=== PATIENT | male | born 1950 | race African-American/Black ===

== ENCOUNTER → 2016-03-27 | Outpatient (CLI) | payer MEDICARE ==
[2015-11-17 12:15] VITALS: BP 98/53
[~2016-03-27] MED LIST: ACET325T9 PO; BREO ELLIPTA 11 EACH IH; INHALER; RANI150T6 PO
--- NOTE | 2016-03-27 11:19 | EKG ---
[facility] [address] [place] [address] Test Date: 2016-03-27 Test Time: 11:19:06 Pat Name: CAROLINA PAGAN Department: Room: Gender: M Field Administrator: POLLO : 1950 Requested By: DONTAE COOK Order Number: [id number] Reading MD: Measurements Intervals [place]olson Rate: 102 P: 43 ND: 140 QRS: 64 QRSD: 82 T: 66 QT: 336 QTc: 442 Interpretive Statements SINUS TACHYCARDIA NO SPECIFIC ECG ABNORMALITIES RI6.01 No previous ECG available for comparison
== END | disposition home or self-care (01) ==
LOC: EKG 10:54
PROVIDERS: ATTEND Internal Medicine Hematology & Oncology
DX: C34.91 Malignant neoplasm of unspecified part of right bronchus or lung (principal); R53.83 Other fatigue
CPT/HCPCS: 93005

== ENCOUNTER → 2018-02-13 | Outpatient (CLI) | payer MEDICARE ==
[2015-11-17 12:15] VITALS: BP 98/53
[~2018-02-13] MED LIST changes: +CYAN10005 PO; +HEPARIN PF 500 UNIT/5 ML DISP.SYRIN. IV ONE; +IOHEXOL 240 MG/ML 50ML VIAL. PO ONE; +IOHEXOL 300 MG/ML 100ML VIAL. IV ONE; +ONDA8TAB9 PO; +RANI150T21 PO; -RANI150T6 PO
--- NOTE | 2018-02-13 16:42 | RAD ---
CT of the chest, abdomen and pelvis with contrast, 02/13/2018: History: Small cell lung cancer Multidetector CT imaging was performed following oral and IV administration of contrast. Emphysematous changes are present in the lungs. The most recent CT chest images that are currently available are from a PET/CT study from 02/15/2016. There are mild patchy opacities in the right lung which have improved slightly. A couple of tiny nonspecific tree-in-bud type opacities are present laterally in the left base. There is pleural thickening posteromedially on the right which is unchanged. No pleural fluid is evident. No hilar mass is currently seen. No mediastinal adenopathy is evident. A right Port-A-Cath extends into the superior vena cava. There is an 8 mm low-density lesion in the anterior aspect of the liver which appears unchanged since 02/15/2016 as well as a new or CT abdomen and pelvis outside exam from 12/11/2016. It may be a small cyst. No new hepatic abnormality is seen. The gallbladder is unremarkable. No pancreatic abnormality is detected. The spleen is of normal size. A right adrenal soft tissue nodule which measured approximately 2.1 cm in greatest dimension on the 12/11/2016 exam now measures 3.1 cm. A 4.6 cm left adrenal mass has also increased in size. No abdominal or pelvic adenopathy is seen. The bowel loops are not dilated. No free fluid is evident in the abdomen or pelvis. Moderate multilevel degenerative changes are present in the spine. IMPRESSION: 1. Mild streaky and patchy right lung opacities have improved slightly since 02/15/2016. 2. Bilateral adrenal masses have increased in size since 12/11/2016 compatible with progressive metastatic disease. PQRS Compliance Statement: One or more of the following individualized dose reduction techniques were utilized for this examination: 1. Automated exposure control 2. Adjustment of the mA and/or kV according to patient size 3. Use of iterative reconstruction technique PQRS Compliance Statement: One or more of the following individualized dose reduction techniques were utilized for this examination: 1. Automated exposure control 2. Adjustment of the mA and/or kV according to patient size 3. Use of iterative reconstruction technique
== END | disposition home or self-care (01) ==
LOC: CT 10:15
PROVIDERS: ATTEND Internal Medicine Hematology & Oncology
DX: E27.8 Other specified disorders of adrenal gland (principal); R91.8 Other nonspecific abnormal finding of lung field; Z85.118 Personal history of other malignant neoplasm of bronchus and lung
CPT/HCPCS: 71260; 74177; Q9966; Q9967